=== PATIENT | female | born 1950 | race Caucasian/White ===

== ENCOUNTER 2018-08-12 16:06 | Emergency (ER) | payer MEDICARE ==
[2018-08-12 16:36] VITALS: BP 150/95
--- NOTE | 2018-08-12 16:59 | ED ---
Skin Complaint - HPI Summary HPI Summary: 68 yr old female with the complaint of rash to the back of her neck. Onset a week ago. She was out of town staying in a hotel in [place]. She has been itching the back of her neck. She has had a prior issue with same problem in the past when on a trip to [place]. She has no other complaints. Prior history of psoriasis. - History of Current Complaint Chief Complaint: UCRash Time Seen by Provider: 08/12/18 16:44 Stated Complaint: SKIN COMPLAINT Pain Intensity: 0 - Allergy/Home Medications Allergies/Adverse Reactions: Allergies Allergy/AdvReac Type Severity Reaction Status Date / Time Penicillins Allergy Rash Verified 08/12/18 16:29 Home Medications: Home Medications Latanoprost 0.005%* [Xalatan 0.005%*] 1 drop BOTH EYES BID 08/12/18 [History Confirmed 08/12/18] Rosuvastatin Calcium [Crestor] 40 mg PO DAILY 08/12/18 [History Confirmed ] Timolol 0.25% OPHTH.SOLN* [Timoptic Ophth.soln 0.25%] 1 drop BOTH EYES BID 08/12 [History Confirmed 08/12/18] diPHENhydraMINE PO* [Benadryl PO 50 MG CAP*] 50 mg PO ONCE 08/12/18 [History Confirmed 08/12/18] PMH/Surg Hx/FS Hx/Imm Hx - Surgical History Surgery Procedure, Year, and Place: hysterectomy. appendectomy Infectious Disease History: Yes Infectious Disease History: Reports: Hx Shingles Denies: Traveled Outside the [place] in Last 30 Days - Family History Known Family History: Positive: None - Social History Occupation: Employed Full-time Alcohol Use: Occasionally Substance Use Type: Reports: None Smoking Status (MU): Former Smoker Review of Systems Constitutional: Negative Positive: Rash, Other - itching back of neck All Other Systems Reviewed And Are Negative: Yes Physical Exam Triage Information Reviewed: Yes Vital Signs On Initial Exam: Initial Vitals Temp Pulse Resp BP Pulse Ox 98.6 F 73 15 150/95 98 08/12/18 16:31 08/12/18 16:31 08/12/18 16:31 08/12/18 16:31 08/12/18 16:31 Vital Signs Reviewed: Yes Appearance: Positive: Well-Appearing, No Pain Distress Skin: Positive: Other - papular, rash with some lichen appearance to back of neck consistent with dermaitis. Eyes: Positive: EOMI ENT: Positive: Normal ENT inspection, Pharynx normal Neck: Positive: Supple, Nontender Respiratory/Lung Sounds: Positive: Clear to Auscultation, Breath Sounds Present Cardiovascular: Positive: RRR. Negative: Murmur Abdomen Description: Negative: Distended Musculoskeletal: Positive: Strength/ROM Intact Neurological: Positive: Sensory/Motor Intact, Alert, Oriented to Person Place, Time, CN Intact II-III Psychiatric: Positive: Normal - Raphael Coma Scale Best Eye Response: 4 - Spontaneous Best Motor Response: 6 - Obeys Commands Best Verbal Response: 5 - Oriented Coma Scale Total: 15 Diagnostics - Vital Signs Vital Signs Temp Pulse Resp BP Pulse Ox 08/12/18 16:31 98.6 F 73 15 150/95 98 - Laboratory Lab Statement: Any lab studies that have been ordered have been reviewed, and results considered in the medical decision making process. Course/Dx - Course Course Of Treatment: 68 yr old with dermatitis. Rx with medrol dose jatinder. FU with PMD for HTN - Diagnoses Provider Diagnoses: Dermatitis, Hypertension Discharge - Sign-Out/Discharge Documenting (check all that apply): Patient Departure All imaging exams completed and their final reports reviewed: No Studies - Discharge Plan Condition: Good Disposition: HOME Prescriptions: methylPREDNISolone [Medrol Dosepak 4 MG*] 4 mg PO .SEE JATINDER INSTRUCTION #1 jatinder Patient Education Materials: Eczema (ED), Contact Dermatitis (ED), Hypertension (ED) Referrals: Den Interiano MD [Primary Care Provider] - 2 Days - Billing Disposition and Condition Condition: GOOD Disposition: Home
== END 2018-08-12 17:00 | disposition home or self-care (01) ==
LOC: UCCORT 16:06
DX: L30.9 Dermatitis, unspecified (principal); I10 Essential (primary) hypertension; Z88.0 Allergy status to penicillin; Z87.891 Personal history of nicotine dependence
CPT/HCPCS: 99212; G0463